=== PATIENT | female | born 1980 | race Caucasian/White ===

== ENCOUNTER 2019-03-22 18:55 | Emergency (ER) | payer BC ==
[~2019-03-22] VITALS: Ht 165.1 cm; Wt 72.1 kg
[~2019-03-22 18:55] MED LIST: ALBUTEROL INHAL17 GM IH; AUGMENTIN XR1000 MG PO; BENAZEPRIL HCL10 MG PO; IBUPROFEN 800800 M1 PO; LOESTRIN FE 1-1 EACH; MEDROLDOSEPACK PO; NOHOMEMEDICATIONS; NORCO 5-325 TA1 EACH PO; ORTHO TRI-CYCL1 EAC1 PO; TESSALON200 MG; ZOFRAN 4 MG ORAL4 M1 DIS; ZPAK PO
[2019-03-22] MEDS ORDERED: LEXAPRO20 MG PO (19:44)
[2019-03-22] MEDS ORDERED: IBUPROFEN 800800 M1 PO (20:22)
[2019-03-22 21:19] VITALS: BP 140/88
== END 2019-03-22 21:01 | disposition home or self-care (01) ==
LOC: M.ERS 18:55
DX: S93.492A Sprain of other ligament of left ankle, initial encounter (principal); I10 Essential (primary) hypertension; W10.9XXA Fall (on) (from) unspecified stairs and steps, initial encounter; Y92.89 Other specified places as the place of occurrence of the external cause; Y93.01 Activity, walking, marching and hiking; Y99.8 Other external cause status